=== PATIENT | male | born 1960 | race Caucasian/White ===

== ENCOUNTER 2018-11-16 10:59 | Emergency (ER) | payer BC ==
--- NOTE | 2018-11-16 11:28 | ED ---
General Adult HPI - General Chief complaint: Psychiatric Symptoms Stated complaint: Mental health Time Seen by Provider: 11/16/18 11:00 Source: patient, RN notes reviewed Mode of arrival: wheelchair Limitations: no limitations - History of Present Illness Initial comments: This a 58-year-old male who presents to the emergency department complaining of anxiety and states he can't stop crying. Patient states he is a binge drinker and he was on a binge yesterday. Patient states last drink was yesterday afternoon. Patient denies any alcohol today. Patient denies any new physical complaints today. Patient denies suicidal or homicidal. Patient states he just extremely depressed and can't stop crying. Patient denies any headache patient denies numbness weakness per patient denies chest pain difficulty breathing first breath per patient denies abdominal pain patient denies nausea vomiting diarrhea. Patient denies any recent injury or trauma. - Related Data Home Medications Medication Instructions Recorded Confirmed Omeprazole 20 mg PO HS 02/02/15 11/16/18 Acetaminophen-Codeine 300-30mg 1 tab PO QID PRN 11/16/18 11/16/18 [Tylenol w/codeine #3] Amitriptyline HCl 25 mg PO HS 11/16/18 11/16/18 Metoprolol Tartrate 25 mg PO BID-W/MEALS 11/16/18 11/16/18 Venlafaxine HCl ER [Effexor XR] 150 mg PO HS 11/16/18 11/16/18 amLODIPine BESYLATE 5 mg PO HS 11/16/18 11/16/18 hydrOXYzine PAMOATE [Vistaril] 25 mg PO BID PRN 11/16/18 11/16/18 Allergies Allergy/AdvReac Type Severity Reaction Status Date / Time No Known Allergies Allergy Verified 11/16/18 11:07 Review of Systems ROS Statement: Those systems with pertinent positive or pertinent negative responses have been documented in the HPI. ROS Other: All systems not noted in ROS Statement are negative. Past Medical History Past Medical History: GERD/Reflux Additional Past Medical History / Comment(s): SEE DR CAYLA Bryan&P, STATES BEING TESTED FOR SLEEP APNEA History of Any Multi-Drug Resistant Organisms: None Reported Past Surgical History: Cholecystectomy, Joint Replacement Additional Past Surgical History / Comment(s): LEFT HIP, RIGHT SHOULDER Past Anesthesia/Blood Transfusion Reactions: No Reported Reaction Past Psychological History: Anxiety, Depression Smoking Status: Former smoker Past Alcohol Use History: Abuse, Heavy Past Drug Use History: None Reported - Past Family History Father Family Medical History: Cancer Additional Family Medical History / Comment(s): PROSTATE General Exam - General Exam Comments Initial Comments: GENERAL: Patient is well-developed and well-nourished. Patient is nontoxic and well- hydrated and is in mild distress. ENT: Neck is soft and supple. No significant lymphadenopathy is noted. Oropharynx is clear. Moist mucous membranes. Neck has full range of motion without eliciting any pain. EYES: The sclera were anicteric and conjunctiva were pink and moist. Extraocular movements were intact and pupils were equal round and reactive to light. Eyelids were unremarkable. PULMONARY: Unlabored respirations. Good breath sounds bilaterally. No audible rales rhonchi or wheezing was noted. CARDIOVASCULAR: There is a regular rate and rhythm without any murmurs gallops or rubs. ABDOMEN: Soft and nontender with normal bowel sounds. SKIN: Skin is clear with no lesions or rashes and otherwise unremarkable. NEUROLOGIC: Patient is alert and oriented x3. Cranial nerves II through XII are grossly intact. Motor and sensory are also intact. Normal speech, volume and content. Symmetrical smile. MUSCULOSKELETAL: Normal extremities with adequate strength and full range of motion. No lower extremity swelling or edema. No calf tenderness. LYMPHATICS: No significant lymphadenopathy is noted PSYCHIATRIC: Patient is very depressed and crying throughout the interview. Patient denies suicidal homicidal ideations. Patient states that is otherwise crying but he can't stop. Limitations: no limitations Course Vital Signs 11/16/18 11:05 Temperature 97.8 F Pulse Rate 123 H Respiratory 30 H Rate Blood Pressure 141/89 O2 Sat by Pulse 99 Oximetry Medical Decision Making - Medical Decision Making EPS evaluated the patient and the patient will follow-up as an outpatient. - Lab Data Lab Results 11/16/18 Range/Units 12:39 Urine Opiates Screen Not Detected (NotDetected) Ur Oxycodone Screen Not Detected (NotDetected) Urine Methadone Screen Not Detected (NotDetected) Ur Propoxyphene Screen Not Detected (NotDetected) Ur Barbiturates Screen Not Detected (NotDetected) U Tricyclic Antidepress Not Detected (NotDetected) Ur Phencyclidine Scrn Not Detected (NotDetected) Ur Amphetamines Screen Not Detected (NotDetected) U Methamphetamines Scrn Not Detected (NotDetected) U Benzodiazepines Scrn Detected H (NotDetected) Urine Cocaine Screen Not Detected (NotDetected) U Marijuana (THC) Screen Not Detected (NotDetected) Disposition Clinical Impression: Acute anxiety, Alcohol abuse Disposition: HOME SELF-CARE Condition: Good Instructions: Anxiety (ED), Abuse of Alcohol (ED) Is patient prescribed a controlled substance at d/c from ED?: No Referrals: Yessi Nails MD [Primary Care Provider] - 1-2 days Time of Disposition: 15:12
[2018-11-16] MEDS ORDERED: LORazepam 2 MG/ML INJ IM STA (11:35)
[2018-11-16 13:32] LABS: Amphetamine Screen,Urine Not Detected (NotDetected); Barbiturate Screen,Urine Not Detected (NotDetected); Benzodiazepines Screen,Urine Detected (NotDetected); Cocaine Screen,Urine Not Detected (NotDetected); Methadone Screen, Urine Not Detected (NotDetected); Opiate Screen,Urine Not Detected (NotDetected); Oxycodone Screen, Urine Not Detected (NotDetected); Phencyclidine Screen,Urine Not Detected (NotDetected); Tricyclic Antidepressant,Urine Not Detected (NotDetected); Urn Cannabinoid Scrn Not Detected (NotDetected)
[2018-11-16 15:55] VITALS: BP 146/93; PULSE 112; RESP 22; TEMP 98.6
== END 2018-11-16 15:30 | disposition home or self-care (01) ==
LOC: EC 10:59
DX: F41.9 Anxiety disorder, unspecified (principal); F10.10 Alcohol abuse, uncomplicated; F32.9 Major depressive disorder, single episode, unspecified; K21.9 Gastro-esophageal reflux disease without esophagitis; F17.200 Nicotine dependence, unspecified, uncomplicated; Z79.899 Other long term (current) drug therapy; Z96.9 Presence of functional implant, unspecified
CPT/HCPCS: 80306; 99284; 96372; J2060; 99283

== ENCOUNTER 2019-02-17 10:14 | Emergency (ER) | payer BC ==
[2019-02-17] MEDS ORDERED: SODIUM CHLORIDE 0.9% 1,000 ML IV STA (11:05)
--- NOTE | 2019-02-17 11:08 | ED ---
Alcohol HPI - General Source: EMS, RN notes reviewed, old records reviewed Mode of arrival: EMS Limitations: no limitations <Ruby Hollins - Last Filed: 02/17/19 20:33> <Jesu Juarez - Last Filed: 02/17/19 22:13> - General Chief Complaint: Alcohol Stated Complaint: Detox Time Seen by Provider: 02/17/19 10:22 - History of Present Illness Initial Comments: Patient is a 38-year-old male who presents for transfer today with alcohol intoxication complaining of severe depression and suicidal thoughts. He states he "just doesn't want to live anymore". Patient states that he's had no new triggers within his complaining of any family stressors. Patient states that he started drinking heavily on Thursday. Patient arrived here via EMS. Patient states heis treated at [facility]. Patient states that he wants to be admitted to [facility]. Patient states that he has been dealing with chronic pain and back pain. (Ruby Hollins) - Related Data Home Medications Medication Instructions Recorded Confirmed Omeprazole 20 mg PO HS 02/02/15 02/17/19 Acetaminophen-Codeine 300-30mg 1 tab PO QID PRN 11/16/18 02/17/19 [Tylenol w/codeine #3] Venlafaxine HCl ER [Effexor XR] 150 mg PO HS 11/16/18 02/17/19 Lisinopril [Prinivil] 5 mg PO DAILY 02/17/19 02/17/19 traMADol HCL [Ultram] 50 mg PO Q8H PRN 02/17/19 02/17/19 Allergies Allergy/AdvReac Type Severity Reaction Status Date / Time No Known Allergies Allergy Verified 02/17/19 10:42 Review of Systems ROS Other: All systems not noted in ROS Statement are negative. <Ruby Hollins - Last Filed: 02/17/19 20:33> ROS Other: All systems not noted in ROS Statement are negative. <Jesu Juarez - Last Filed: 02/17/19 22:13> ROS Statement: Those systems with pertinent positive or pertinent negative responses have been documented in the HPI. Past Medical History Past Medical History: GERD/Reflux Additional Past Medical History / Comment(s): SEE DR KULKARNI H&P, STATES BEING TESTED FOR SLEEP APNEA History of Any Multi-Drug Resistant Organisms: None Reported Past Surgical History: Cholecystectomy, Joint Replacement Additional Past Surgical History / Comment(s): LEFT HIP, RIGHT SHOULDER Past Anesthesia/Blood Transfusion Reactions: No Reported Reaction Past Psychological History: Anxiety, Depression Smoking Status: Former smoker Past Alcohol Use History: Abuse, Heavy Past Drug Use History: None Reported - Past Family History Father Family Medical History: Cancer Additional Family Medical History / Comment(s): PROSTATE <Ruby Hollins - Last Filed: 02/17/19 20:33> General Exam Limitations: no limitations General appearance: alert, in no apparent distress Head exam: Present: atraumatic, normocephalic, normal inspection Eye exam: Present: normal appearance, PERRL, EOMI. Absent: scleral icterus, conjunctival injection, periorbital swelling ENT exam: Present: normal exam, mucous membranes moist Neck exam: Present: normal inspection. Absent: tenderness, meningismus, lymphadenopathy Respiratory exam: Present: normal lung sounds bilaterally. Absent: respiratory distress, wheezes, rales, rhonchi, stridor Cardiovascular Exam: Present: regular rate, normal rhythm, normal heart sounds. Absent: systolic murmur, diastolic murmur, rubs, gallop, clicks GI/Abdominal exam: Present: soft, normal bowel sounds. Absent: distended, tenderness, guarding, rebound, rigid Extremities exam: Present: normal inspection, full ROM, normal capillary refill. Absent: tenderness, pedal edema, joint swelling, calf tenderness Back exam: Present: normal inspection Neurological exam: Present: alert, oriented X3, CN II-XII intact Psychiatric exam: Present: normal affect, normal mood Skin exam: Present: warm, dry, intact, normal color. Absent: rash <Ruby Hollins - Last Filed: 02/17/19 20:33> - General Exam Comments Initial Comments: 58-year-old male. Alert and oriented. Patient appears in no significant distress. Appears intoxicated. (Ruby Hollins) Course Vital Signs 02/17/19 02/17/19 02/17/19 10:38 14:49 18:52 Temperature 98.7 F 97.8 F Pulse Rate 116 H 115 H 95 Respiratory 16 20 16 Rate Blood Pressure 133/95 150/97 145/79 O2 Sat by Pulse 96 97 96 Oximetry Medical Decision Making - Lab Data Result diagrams: 02/17/19 11:20 02/17/19 11:20 <Ruby Hollins - Last Filed: 02/17/19 20:33> - Lab Data Result diagrams: 02/17/19 11:20 02/17/19 11:20 <Jesu Juarez - Last Filed: 02/17/19 22:13> - Medical Decision Making Patient is 58-year-old male presents for [facility] today for alcohol intoxication requesting detox and concerns for depression. He states he "doesn't want to live anymore". Patient was given IV fluids Patient is a sober until 7:00 PM. Patient's lab work was otherwise unremarkable. Patient was stable in ER and will be evaluated by EPS. Patient states she would like to be transferred to [facility]. Patient's case transferred to Dr. Juarez at 8:34 PM. (Ruby Hollins) Patient seen by mental health services who recommends discharge. Patient reevaluated and resting comfortably in bed. Patient is comfortable with discharge and agreeable with follow-up and discontinuation of alcohol. (Jesu Juarez) - Lab Data Lab Results 02/17/19 02/17/19 02/17/19 Range/Units 11:09 11:20 11:20 WBC 11.0 H (3.8-10.6) k/uL RBC 5.60 (4.30-5.90) m/uL Hgb 16.7 (13.0-17.5) gm/dL Hct 48.9 (39.0-53.0) % MCV 87.3 (80.0-100.0) fL MCH 29.9 (25.0-35.0) pg MCHC 34.2 (31.0-37.0) g/dL RDW 15.1 (11.5-15.5) % Plt Count 327 (150-450) k/uL Neutrophils % 70 % Lymphocytes % 23 % Monocytes % 5 % Eosinophils % 1 % Basophils % 0 % Neutrophils # 7.7 (1.3-7.7) k/uL Lymphocytes # 2.6 (1.0-4.8) k/uL Monocytes # 0.5 (0-1.0) k/uL Eosinophils # 0.1 (0-0.7) k/uL Basophils # 0.0 (0-0.2) k/uL PT (9.0-12.0) sec INR (<1.2) Sodium 146 H (137-145) mmol/L Potassium 3.7 (3.5-5.1) mmol/L Chloride 105 (98-107) mmol/L Carbon Dioxide 24 (22-30) mmol/L Anion Gap 17 mmol/L BUN 11 (9-20) mg/dL Creatinine 0.80 (0.66-1.25) mg/dL Est GFR (CKD-EPI)AfAm >90 (>60 ml/min/1.73 sqM) Est GFR (CKD-EPI)NonAf >90 (>60 ml/min/1.73 sqM) Glucose 140 H (74-99) mg/dL Calcium 9.6 (8.4-10.2) mg/dL Magnesium 2.2 (1.6-2.3) mg/dL Total Bilirubin 0.9 (0.2-1.3) mg/dL AST 88 H (17-59) U/L ALT 100 H (21-72) U/L Alkaline Phosphatase 121 (38-126) U/L Total Protein 8.3 H (6.3-8.2) g/dL Albumin 5.0 (3.5-5.0) g/dL Amylase 60 (30-110) U/L Lipase 210 (23-300) U/L Urine Color Yellow Urine Appearance Clear (Clear) Urine pH 6.0 (5.0-8.0) Ur Specific [place] 1.012 (1.001-1.035) Urine Protein 2+ H (Negative) Urine Glucose (UA) Negative (Negative) Urine Ketones Trace H (Negative) Urine Blood Moderate H (Negative) Urine Nitrite Negative (Negative) Urine Bilirubin Negative (Negative) Urine Urobilinogen <2.0 (<2.0) mg/dL Ur Leukocyte Esterase Negative (Negative) Urine RBC 1 (0-5) /hpf Urine WBC 1 (0-5) /hpf Urine Bacteria Rare H (None) /hpf Urine Mucus Few H (None) /hpf Urine Opiates Screen Not Detected (NotDetected) Ur Oxycodone Screen Not Detected (NotDetected) Urine Methadone Screen Not Detected (NotDetected) Ur Propoxyphene Screen Not Detected (NotDetected) Ur Barbiturates Screen Not Detected (NotDetected) U Tricyclic Antidepress Not Detected (NotDetected) Ur Phencyclidine Scrn Not Detected (NotDetected) Ur Amphetamines Screen Not Detected (NotDetected) U Methamphetamines Scrn Not Detected (NotDetected) U Benzodiazepines Scrn Not Detected (NotDetected) Urine Cocaine Screen Not Detected (NotDetected) U Marijuana (THC) Screen Not Detected (NotDetected) Serum Alcohol 231 H* mg/dL 02/17/19 Range/Units 11:20 WBC (3.8-10.6) k/uL RBC (4.30-5.90) m/uL Hgb (13.0-17.5) gm/dL Hct (39.0-53.0) % MCV (80.0-100.0) fL MCH (25.0-35.0) pg MCHC (31.0-37.0) g/dL RDW (11.5-15.5) % Plt Count (150-450) k/uL Neutrophils % % Lymphocytes % % Monocytes % % Eosinophils % % Basophils % % Neutrophils # (1.3-7.7) k/uL Lymphocytes # (1.0-4.8) k/uL Monocytes # (0-1.0) k/uL Eosinophils # (0-0.7) k/uL Basophils # (0-0.2) k/uL PT 10.3 (9.0-12.0) sec INR 1.0 (<1.2) Sodium (137-145) mmol/L Potassium (3.5-5.1) mmol/L Chloride (98-107) mmol/L Carbon Dioxide (22-30) mmol/L Anion Gap mmol/L BUN (9-20) mg/dL Creatinine (0.66-1.25) mg/dL Est GFR (CKD-EPI)AfAm (>60 ml/min/1.73 sqM) Est GFR (CKD-EPI)NonAf (>60 ml/min/1.73 sqM) Glucose (74-99) mg/dL Calcium (8.4-10.2) mg/dL Magnesium (1.6-2.3) mg/dL Total Bilirubin (0.2-1.3) mg/dL AST (17-59) U/L ALT (21-72) U/L Alkaline Phosphatase (38-126) U/L Total Protein (6.3-8.2) g/dL Albumin (3.5-5.0) g/dL Amylase (30-110) U/L Lipase (23-300) U/L Urine Color Urine Appearance (Clear) Urine pH (5.0-8.0) Ur Specific [place] (1.001-1.035) Urine Protein (Negative) Urine Glucose (UA) (Negative) Urine Ketones (Negative) Urine Blood (Negative) Urine Nitrite (Negative) Urine Bilirubin (Negative) Urine Urobilinogen (<2.0) mg/dL Ur Leukocyte Esterase (Negative) Urine RBC (0-5) /hpf Urine WBC (0-5) /hpf Urine Bacteria (None) /hpf Urine Mucus (None) /hpf Urine Opiates Screen (NotDetected) Ur Oxycodone Screen (NotDetected) Urine Methadone Screen (NotDetected) Ur Propoxyphene Screen (NotDetected) Ur Barbiturates Screen (NotDetected) U Tricyclic Antidepress (NotDetected) Ur Phencyclidine Scrn (NotDetected) Ur Amphetamines Screen (NotDetected) U Methamphetamines Scrn (NotDetected) U Benzodiazepines Scrn (NotDetected) Urine Cocaine Screen (NotDetected) U Marijuana (THC) Screen (NotDetected) Serum Alcohol mg/dL Disposition <Ruby Hollins - Last Filed: 02/17/19 20:33> Is patient prescribed a controlled substance at d/c from ED?: No Time of Disposition: 22:13 <Jesu Juarez - Last Filed: 02/17/19 22:13> Clinical Impression: Alcohol abuse, Depression Disposition: HOME SELF-CARE Instructions (If sedation given, give patient instructions): Abuse of Alcohol (ED), Depression (ED), Help Prevent Suicide (ED) Additional Instructions: Discontinue alcohol use. Please follow-up with your counselor, call tomorrow. Please also follow-up to primary care physician in the next day for recheck. Return for thoughts of self-harm, worsening symptoms or other concerns. Referrals: Nando Miller MD [Primary Care Provider] - 1-2 days
[2019-02-17] MEDS ORDERED: 1: MVI, ADULT NO.4 WITH VIT K 10 ML, THIAMINE 100 MG, FOLIC ACID 1 MG in SODIUM CHLORIDE IV SCH ×4 (11:15)
[2019-02-17] MEDS ORDERED: traMADol 50 MG TAB PO STA (11:29)
[2019-02-17 11:53] LABS: Basophils % (A) 0 %; Eosinophils # (A) 0.1 k/uL (0-0.7); Eosinophils % (A) 1 %; HCT 48.9 % (39.0-53.0); HGB 16.7 gm/dL (13.0-17.5); Lymphocytes # (A) 2.6 k/uL (1.0-4.8); Lymphocytes % (A) 23 %; MCH 29.9 pg (25.0-35.0); MCHC 34.2 g/dL (31.0-37.0); MCV 87.3 fL (80.0-100.0); Monocytes # (A) 0.5 k/uL (0-1.0); Monocytes % (A) 5 %; Neutrophils # (A) 7.7 k/uL (1.3-7.7); Neutrophils % (A) 70 %; Platelet Count 327 k/uL (150-450); RDW 15.1 % (11.5-15.5)
[2019-02-17 11:55] LABS: Prothrombin Time 10.3 sec (9.0-12.0)
[2019-02-17 12:03] LABS: Appearance,Urine Clear (Clear); Bacteria,Urine Rare /hpf; Bilirubin,Urine Negative (Negative); Blood,Urine Moderate (Negative); Color,Urine Yellow; Glucose,Urine (UA) Negative (Negative); Ketones,Urine Trace (Negative); Leukocyte Esterase,Urine Negative (Negative); Mucus,Urine Few /hpf; Nitrite,Urine Negative (Negative); Protein,Urine 2+ (Negative); RBC,Urine 1 /hpf (0-5); Specific Gravity,Urine 1.012 (1.001-1.035); Urobilinogen,Urine <2.0 mg/dL (<2.0); WBC,Urine 1 /hpf (0-5)
[2019-02-17 12:04] LABS: Amphetamine Screen,Urine Not Detected (NotDetected); Barbiturate Screen,Urine Not Detected (NotDetected); Benzodiazepines Screen,Urine Not Detected (NotDetected); Cocaine Screen,Urine Not Detected (NotDetected); Methadone Screen, Urine Not Detected (NotDetected); Opiate Screen,Urine Not Detected (NotDetected); Oxycodone Screen, Urine Not Detected (NotDetected); Phencyclidine Screen,Urine Not Detected (NotDetected); Tricyclic Antidepressant,Urine Not Detected (NotDetected); Urn Cannabinoid Scrn Not Detected (NotDetected)
[2019-02-17 12:07] LABS: ALT 100 U/L (21-72); AST 88 U/L (17-59); Alkaline Phosphatase 121 U/L (38-126); Amylase 60 U/L (30-110); Anion Gap 17 mmol/L; Blood Urea Nitrogen 11 mg/dL (9-20); Calcium 9.6 mg/dL (8.4-10.2); Carbon Dioxide 24 mmol/L (22-30); Chloride 105 mmol/L (98-107); Glucose 140 mg/dL (74-99); Lipase 210 U/L (23-300); Magnesium 2.2 mg/dL (1.6-2.3); Potassium 3.7 mmol/L (3.5-5.1); Sodium 146 mmol/L (137-145); Total Bilirubin 0.9 mg/dL (0.2-1.3); Total Protein 8.3 g/dL (6.3-8.2)
[2019-02-17 12:17] LABS: Alcohol 231 mg/dL
[2019-02-17] MEDS ORDERED: LORazepam 2 MG/ML INJ IV PRN ×3 (13:06)
[2019-02-17] MEDS ORDERED: LORazepam 2 MG/ML INJ IV STA (13:06)
[2019-02-17 18:53] VITALS: RESP 16; TEMP 97.8
[2019-02-17 22:17] VITALS: BP 137/90; PULSE 92
== END 2019-02-17 22:38 | disposition home or self-care (01) ==
LOC: EC 10:14
DX: F10.10 Alcohol abuse, uncomplicated (principal); F32.9 Major depressive disorder, single episode, unspecified; G89.29 Other chronic pain; M54.9 Dorsalgia, unspecified; R45.851 Suicidal ideations; K21.9 Gastro-esophageal reflux disease without esophagitis; F41.9 Anxiety disorder, unspecified; Z87.891 Personal history of nicotine dependence; Z79.899 Other long term (current) drug therapy
CPT/HCPCS: 82075; 36415; 80053; 82150; 83690; 83735; 85025; 85610; 81001; 80306; 80320; 99285; 96365; 96366 ×5; 96375; 96376 ×2; 96361 ×5; J2060; J3411